=== PATIENT | female | born 1995 | race Caucasian/White ===

== ENCOUNTER 2016-04-02 10:54 | Emergency (ER) | payer MEDICAID ==
[2016-04-02] MEDS ORDERED: KETOROLAC 60 MG/2 ML VIAL IM ONE (13:17)
== END 2016-04-02 14:13 | disposition home or self-care (01) ==
LOC: FASTR 10:54
DX: J02.9 Acute pharyngitis, unspecified (principal); B34.9 Viral infection, unspecified
CPT/HCPCS: 81025; 87804; 87880; 96372